=== PATIENT | male | born 1970 | race Caucasian/White ===

== ENCOUNTER 2017-01-12 12:39 | Day surgery (SDC) | payer BC ==
[~2017-01-12 12:39] MED LIST: Buffered Lidocaine 0.9% SYRIN* 5 ML/SYR SYRINGE INTRADERM ONE; NS 0.9% 1000 ML* 1,000 ML IV SCH
[2017-01-12] MEDS ORDERED: Buffered Lidocaine 0.9% SYRIN* 5 ML/SYR SYRINGE ONE (12:42)
[2017-01-12] MEDS ORDERED: ceFAZolin 2 GM PREMIX (*) 50 ML IVPB ONE (12:42)
[2017-01-12] MEDS ORDERED: fentaNYL* 50 MCG/ML 2 ML VIAL (100 MCG VIAL) ONE ×2 (13:48→15:48)
[2017-01-12] MEDS ORDERED: Midazolam* 1 MG/ML 2 ML VIAL (2 MG) ONE (13:48)
[2017-01-12] MEDS ORDERED: Lidocaine 1% INJ* 10 MG/ML 30 ML SDV ONE (14:26)
[2017-01-12] MEDS ORDERED: Bupivacaine 0.5% SDV PF* 30 ML VIAL ONE (14:26)
[2017-01-12] MEDS ORDERED: Bupivacaine 0.25% SDV* 30 ML ONE (14:26)
[2017-01-12] MEDS ORDERED: Propofol* 10 MG/ML 20 ML BTL IV PUSH ONE (14:40)
[2017-01-12] MEDS ORDERED: Lidocaine 2% PF * 5 ML VIAL ONE (14:40)
[2017-01-12] MEDS ORDERED: Famotidine IV* 10 MG/ML 2 ML (20 mg) ONE (14:40)
[2017-01-12] MEDS ORDERED: Midazolam* 1 MG/ML 5 ML VIAL (5 MG) ONE (14:40)
[2017-01-12] MEDS ORDERED: Dexamethasone IV* 4 MG/ML 1 ML (4 MG) ONE (14:40)
[2017-01-12] MEDS ORDERED: KETAMINE HCL* 50 MG/ML 10 ML VIAL ONE (14:50)
[2017-01-12] MEDS ORDERED: Acetaminophen TAB* 325 MG PO PRN (16:56)
[2017-01-12] MEDS ORDERED: HYDROcodone/ACETAMIN 5-325 MG* 1 TAB PO PRN (16:56)
[2017-01-12] MEDS ORDERED: Ondansetron INJ* 2 MG/ML VIAL IV PRN (16:56)
[2017-01-12] MEDS ORDERED: HYDROcodone/ACETAMIN 5-325 MG* 1 TAB ONE (17:14)
[2017-01-12 17:40] VITALS: BP 148/100
--- NOTE | 2017-01-12 19:33 | RAD ---
INDICATION: Percutaneous placement of dorsal column stimulator. COMPARISON: There are no prior studies available for comparison. TECHNIQUE: 834.4 seconds of intermittent fluoroscopic guidance were provided and 5 spot films centered over the thoracolumbar junction region were obtained in the AP and lateral projections. FINDINGS: The films demonstrate placement of 2 dorsal column stimulator leads which project over the lower dorsal spine. IMPRESSION: INTRAOPERATIVE CONTROL FILMS. CPT II Codes: 6045F
--- NOTE | 2017-01-13 12:17 | PM ---
PAIN MANAGEMENT NOTE: DATE OF VISIT: 01/12/17 HISTORY: I had the pleasure of seeing Mr. Rodrigo Lewis today for spinal cord stimulator trial. The patient was seen and examined in the preoperative holding area. His H and P was updated and had no significant changes. SPINAL CORD STIMULATION TRIAL: DATE OF PROCEDURE: 01/12/17 PROCEDURE PERFORMED: Spinal cord stimulator placement. PROCEDURE DIAGNOSIS: Left lower extremity chronic regional pain syndrome. PROCEDURE PERFORMED BY: Nadia Sims MD. FLUORO TIME: ____seconds. SEDATION: General MAC. ESTIMATED BLOOD LOSS: Minimal. HARDWARE: Nevro. PHYSICAL EXAMINATION: The patient denies any new neurological or constitutional red flags. The patient denies any recent infection or current use of anticoagulants. Medications, as outlined on electronic medical record as well as allergies were reviewed with the patient. Skin of back with rash, lesions, or ulcers. PROCEDURE SUMMARY: The patient was seen and examined. Medical records were reviewed. The patient was informed of the risks, benefits, and alternatives to the procedure. Risks discussed included but were not limited to bleeding, infection, nerve damage or spinal headaches. The patient indicates understanding , all questions were answered, and consent obtained. The patient was then brought to the procedure room and placed in the prone position with arms to the side, making sure no pressure points were left unattended. Pressure points were checked and padded. Proceduralist was in continuous attendance. The area was then prepped and draped in the usual sterile manner, strict sterile technique was used. Final verification ("time out ") was performed to ensure the correct patient identity, site and agreement on the procedure to be done. The T12-L1 space was identified and confirmed with fluoroscopy. A left paramedian approach was used. mL of plain lidocaine 1% were used for local anesthesia of the skin. A 14-Gauge 3.5 inch Epidural Touhy needle was inserted through the skin at the level one vertebral body below the aforementioned targeted interspace. The needle was advanced under fluoroscopy in a low transverse approach. The epidural space was identified and confirmed by fluoroscopy and easy thread of the SCS lead was performed. There was minimal change of resistance felt with the LINDSAY syringe when trying to identify the epidural space, so the lead was used to confirm entry into the epidural space. The SCS single lead was easily threaded all the way up to superior endplate of the vertebral body and tested by our technical service representative. The steering and maneuvering of the lead was relatively easy and uneventful without significant issue and care was taken to keep the lead just left of midline with the tip aiming slightly to the left. The initial placement of the lead provided stimulation coverage that was adequate for the patient's pain. We then directed our attention to the right sided lead using the same method as summarized above. At this point, the Tuohy needles were cautiously removed verifying under fluoroscopy there was no migration of the lead. The leads were secured with Steri-Strips and Tegaderm in a sterile fashion. The device was taped and secured to the patient's . The patient tolerated the procedure well and was taken to our post-procedure care unit for further recovery and assessment of stimulation coverage modifications were made by the technical service representative. The patient will return for follow up and lead pull in one week. Orders for thoracic spine 2- view x-rays have been ordered for today. Two leads were placed. The right lead was started [id number] contacts below the T12-L1 interspace and passed easily into the epidural space to rest at the junction of T8-9. The second lead was placed left of midline and advanced to the junction of T7-8. The patient tolerated the procedure well with no focal neurological deficits or paresthesias and was subsequently returned to the PACU area where he recovered from anesthesia and was then subsequently discharged. [id number]/[facility] #: [id number] [place]
== END 2017-01-12 17:54 | disposition home or self-care (01) ==
LOC: OR 12:39
PROVIDERS: ATTEND Anesthesiology Pain Medicine
DX: G90.523 Complex regional pain syndrome I of lower limb, bilateral (principal); F17.210 Nicotine dependence, cigarettes, uncomplicated
CPT/HCPCS: 76001; 77003; C1897; J0690; J1100; J2001; J2250; J2704; J3010

== ENCOUNTER 2017-03-02 10:41 | Day surgery (SDC) | payer BC ==
[~2017-03-02 10:41] MED LIST changes: +Dexamethasone IV* 4 MG/ML 1 ML (4 MG) IV SLOW PU ONE; +Famotidine IV* 10 MG/ML 2 ML (20 mg) IV ONE; -NS 0.9% 1000 ML* 1,000 ML IV SCH
[2017-03-02] MEDS ORDERED: Vancomycin(*) 1,000 MG VIAL ONE (10:57)
[2017-03-02] MEDS ORDERED: Gentamicin ADULT (*) 40 MG/ML VIAL ONE (10:57)
[2017-03-02] MEDS ORDERED: Bupivacaine 0.25% SDV* 30 ML ONE (10:57)
[2017-03-02] MEDS ORDERED: Lidocaine 1% INJ* 10 MG/ML 30 ML SDV ONE (10:57)
[2017-03-02] MEDS ORDERED: Bacitracin IV* 50,000 UNITS INJ ONE (10:58)
[2017-03-02] MEDS ORDERED: ceFAZolin 1 GM VIAL(*) ONE (10:58)
[2017-03-02] MEDS ORDERED: Famotidine IV* 10 MG/ML 2 ML (20 mg) ONE (11:09)
[2017-03-02] MEDS ORDERED: Dexamethasone IV* 4 MG/ML 1 ML (4 MG) ONE (11:09)
[2017-03-02] MEDS ORDERED: ceFAZolin 2 GM PREMIX (*) 2 GM/50 ML BAG IVPB ONE (11:10)
[2017-03-02] MEDS ORDERED: Buffered Lidocaine 0.9% SYRIN* 5 ML/SYR SYRINGE ONE (11:10)
[2017-03-02] MEDS ORDERED: KETAMINE HCL* 50 MG/ML 10 ML VIAL ONE (11:51)
[2017-03-02] MEDS ORDERED: fentaNYL* 50 MCG/ML 2 ML VIAL (100 MCG VIAL) ONE ×3 (11:51→14:44)
[2017-03-02] MEDS ORDERED: Propofol* 10 MG/ML 20 ML BTL IV PUSH ONE ×3 (11:51→14:34)
[2017-03-02] MEDS ORDERED: Midazolam* 1 MG/ML 5 ML VIAL (5 MG) ONE (11:51)
[2017-03-02] MEDS ORDERED: Lidocaine 2% PF * 5 ML VIAL ONE (11:51)
[2017-03-02] MEDS ORDERED: Morphine INJ* 2 MG/ML 1 ML CARPUJECT IV PRN (11:56)
[2017-03-02] MEDS ORDERED: oxyCODONE/Acetamin 5/325 MG* TAB PO PRN (11:56)
[2017-03-02] MEDS ORDERED: HYDROcodone/ACETAMIN 5-325 MG* 1 TAB PO PRN (11:56)
[2017-03-02] MEDS ORDERED: fentaNYL* 50 MCG/ML 2 ML VIAL (100 MCG VIAL) IV PRN (11:56)
[2017-03-02] MEDS ORDERED: PROCHLORPERAZINE INJ 5 MG/ML 2 ML VIAL IV PRN (11:56)
[2017-03-02] MEDS ORDERED: Ondansetron INJ* 2 MG/ML VIAL ONE (14:45)
--- NOTE | 2017-03-02 14:47 | RAD ---
INDICATION: Placement of dorsal column stimulator. TECHNIQUE: 737.7 seconds of intermitted fluoroscopic guidance was provided. Several spot films of the spine centered centered just above the dorsal lumbar junction were obtained. FINDINGS: The films demonstrate placement of 2 dorsal column stimulator leads which project over the lower dorsal spinal canal. IMPRESSION: PAIN CLINIC CONTROL FILMS. CPT II Codes: 6045F
[2017-03-02 16:01] VITALS: BP 121/81
--- NOTE | 2017-03-06 04:14 | OP ---
DATE OF OPERATION: 03/02/17 [facility] DATE OF : 66. SURGEON: Nadia Sims MD. TICKET WORKER: Juni Whelan MD. ANESTHESIOLOGIST: Dr. Hammond. ANESTHESIA: Local MAC. PRE-OP DIAGNOSIS: Left-sided chronic regional pain syndrome of the lower extremity. POST-OP DIAGNOSIS: Left-sided chronic regional pain syndrome of the lower extremity. OPERATIVE PROCEDURE: Permanent spinal cord stimulant lead and IPG implantation. ESTIMATED BLOOD LOSS: Less than 20 mL. HARDWARE: Nevro. SUMMARY: The patient is a very pleasant 46-year-old man who complains of left- sided ankle CRPS. He has failed extensive conservative management and underwent spinal cord stimulator trial over the last month. The patent had significant relief of his pain and elected to proceed with permanent implantation. He is here today to undergo this procedure. The risk and benefits of the procedure were extensively discussed, both in the office as well as preoperatively today. The risks and alternative to therapy including possibilities of post dural puncture headache, bleeding, infection, failure of device to improve pain, nerve injury were all discussed with the patient. He verbalized understanding of the risks and elected to proceed. Informed consent was obtained. DESCRIPTION OF PROCEDURE: The patient was then brought to the operating suite by Anesthesia and placed prone on the operating room table. His back was prepped and draped in the usual sterile fashion. Using the fluoroscopy, the T12 -L1 interspace was identified and subcutaneous tissues over that area was anesthetized with a total of 10 mL of 1% lidocaine mixed 0.25% Marcaine. Subsequently, using a #10 scalpel, incision was made over the skin with subsequent blunt dissection down to the subcutaneous and deeper tissues using Bovie electrocautery. Then using a 14-gauge Tuohy needle under direct fluoroscopic guidance at the T12-L1 interspace, I identified the epidural space using a loss of resistance to air technique. There was no neuraxial heme or paresthesias or CSF noted. There was negative aspiration. The contact linear lead was then passed easily into the epidural space and guided to cover over the T8 vertebral body on the left side of midline. Subsequently, another 14 gauge epidural Tuohy needle was used and guided into the T12-L1 interspace. Subsequently, again loss of resistance to air technique was used. There was no CSF, blood or paresthesias noted. There was negative aspiration. Another contact linear lead was passed into the epidural space and laid parallel and slightly to the right of the former lead covering the T8-T9 intervertebral space. Fluoroscopic view was checked in the lateral position and showed good posterior placement of the leads in the epidural space. The leads were placed over the exact anatomical positions of his lead placement during trial. Subsequently, the stylet and needles were removed and the 2 leads were anchored using the Nevro anchoring system. The anchors were then sutured in with 0 silk to the deeper scar tissues. The anchors were then tightened using the silk sutures around the lead. The IPG pocket template was then used to mai the left flank. A 1% lidocaine and 0.25% Marcaine was subsequently used to anesthetize the skin and subcutaneous tissues. Making a transverse incision, a subcutaneous pocket using Metzenbaum scissors, electrocautery for hemostasis was created about the size of the IPG. The area was irrigated copiously with antibiotic irrigation. Subsequently, a tunneling device was used to tunnel from the midline incision to the pocket. The IPG was then attached and continuity was confirmed. Hemostasis was then achieved again in both incisions. Both incisions were subsequently then irrigated again copiously with antibiotic irrigant and vancomycin power was placed. The leads were then placed into the IPG and an audible click was head upon locking down of the screws in both the superior and inferior pockets. The generator was then placed into the pocket. Approximately, a total of 200 mg of vancomycin powder was placed into the pocket and midline incisions. The incisions were then closed with interrupted 2-0 and 3-0 Polysorb sutures. The incisions were then closed with interrupted 2-0 Polysorb sutures followed by another layer of 3-0 Polysorb sutures. The skin was closed using a running subcuticular 4-0 Polysorb suture. DermaFlex was then placed over the incisions followed by Steri -strips and sterile dressings were applied. The patient was then brought to the recovery room by Anesthesia and was subsequently discharged upon meeting the discharge criteria. He tolerated the procedure well. He demonstrated no obvious focal neurological deficits or paresthesias upon discharge. He was given Percocet 5/325, dispensed 20 for postoperative procedural pain. He will follow up with me on the 03/14/17 and will call the office with any questions or concerns. [id number]/[facility] #: [id number] [place]
== END 2017-03-02 16:09 | disposition home or self-care (01) ==
LOC: OR 10:41
PROVIDERS: ATTEND Anesthesiology Pain Medicine
DX: G90.522 Complex regional pain syndrome I of left lower limb (principal); G57.92 Unspecified mononeuropathy of left lower limb; F17.210 Nicotine dependence, cigarettes, uncomplicated; Z79.899 Other long term (current) drug therapy
CPT/HCPCS: 36415; 77003; 86703; 86803; A9270-GY; C1820; C1897; J0690; J1100; J1580; J2250; J2405; J2704; J3010; J3370

== ENCOUNTER → 2017-11-01 10:47 | Day surgery (SDC) | payer BC ==
[~2017-11-01 10:47] MED LIST changes: +Acetaminophen TAB* 325 MG ONE; +Acetaminophen TAB* 325 MG PO PRN; +Bacitracin IV* 50,000 UNITS INJ ONE; +Bupivacaine 0.25% SDV PF* 10 ML VIAL INJ ONE; -Dexamethasone IV* 4 MG/ML 1 ML (4 MG) IV SLOW PU ONE; -Famotidine IV* 10 MG/ML 2 ML (20 mg) IV ONE; +Gentamicin ADULT (*) 40 MG/ML VIAL ONE; +KETAMINE HCL* 50 MG/ML 10 ML VIAL ONE; +Lidocaine 1% INJ* 10 MG/ML 30 ML SDV ONE; +Midazolam* 1 MG/ML 5 ML VIAL (5 MG) ONE; +Naloxone* 0.4 MG/ML 1 ML VIAL IV PRN; +Ondansetron INJ* 2 MG/ML VIAL IV PRN; +Propofol* 10 MG/ML 20 ML BTL IV PUSH ONE; +Propofol* 500 MG/50 ML BTL ONE; +Vancomycin(*) 1,000 MG VIAL ONE; +ceFAZolin 1 GM VIAL(*) ONE; +ceFAZolin 2 GM PREMIX (*) 2 GM/50 ML BAG IVPB ONE; +fentaNYL* 50 MCG/ML 2 ML VIAL (100 MCG VIAL) IV PRN; +fentaNYL* 50 MCG/ML 2 ML VIAL (100 MCG VIAL) ONE
[2017-11-01 15:25] VITALS: BP 153/92
--- NOTE | 2017-11-01 15:41 | RAD ---
CPT II Codes: G9500 INDICATION: Neurostimulator removal. Fluoroscopic services provided for referring physician. 1.9 seconds of fluoroscopy time was used. Single spot image demonstrates neurostimulator leads still in place. IMPRESSION: Fluoroscopic services provided for referring physician for neural stimulator removal.
--- NOTE | 2017-11-01 16:16 | PM ---
DATE OF SERVICE: 11/01/2017 - [facility] DATE OF : 66 PHYSICIAN: Dr. Nadia Sims. CHILD NUTRITION DIRECTOR: Dr. Juni Whelan. ANESTHESIA: Local MAC. PREOPERATIVE DIAGNOSIS: Left lower extremity chronic regional pain syndrome. POSTOPERATIVE DIAGNOSIS: Left lower extremity chronic regional pain syndrome. PROCEDURE PERFORMED: Change of implanted spinal neurostimulator pulse generator cabin worker. HARDWARE: Nevro. ESTIMATED BLOOD LOSS: Minimal. PROCEDURE: The patient was seen and examined in the preoperative holding area. The risks and benefits of the procedure, including but not limited to bleeding, bruising, infection, nerve injury, and device failure were discussed with the patient who verbalized understanding and elected to proceed. The patient denied any constitutional red flags such as fever, chills, infection, use of antibiotics, or changes in his pain symptoms. The patient continues to express pain at the site of the generator due to the size of the generator and is looking forward to having it changed. His left low back was marked appropriately and the patient was brought to the operating room by anesthesia. The patient was placed prone on the operating room table and his abdomen was padded with pillows as to level out is lumbar lordosis. His back was then prepped and draped in the usual sterile fashion. A time out was performed. Subsequently, a 10-blade was used to make a skin incision. Subsequently, soft tissue dissection was made using a combination of Metzenbaum scissors and blunt dissection until the pocket was reached. The pocket appeared healthy and within normal limits with a good capsule. The battery was removed and disconnected from the leads. Subsequently, the generator pocket was irrigated with antibiotic solution copiously. Hemostasis was achieved using bipolar cautery. A new battery was connected to the leads and inserted into the pocket. It was then tested by our [employer] personal financial representative and found to have good connections. The battery screws were tightened and subsequently the wound was closed using 3-0 Vicryl sutures for fascia using interrupted stitches and 4-0 Vicryl for subcuticular closure. The skin was then closed with Dermabond and dressed with Steri-strips. The wound was then sterilely dressed with 4 x 4's and a Tegaderm. The patient was brought to the recovery room in stable condition and subsequently recovered and then discharged upon meeting anesthesia discharge criteria. I did discuss the procedure with his who was present in the recovery room and advised him to contact our clinic should he require any pain medications. An x-ray of his leads showed no motion of lead placement intraoperatively. The patient tolerated the procedure well and was subsequently discharged. He will follow-up with me in the office as scheduled for removal of his sutures. [id number]/[facility] #: [id number] [place]
== END | disposition home or self-care (01) ==
LOC: OR 10:47
PROVIDERS: ATTEND Anesthesiology Pain Medicine
DX: G90.522 Complex regional pain syndrome I of left lower limb (principal); Y83.1 Surgical operation with implant of artificial internal device as the cause of abnormal reaction of the patient, or of later complication, without mention of misadventure at the time of the procedure
CPT/HCPCS: 76000; A9270-GY; C1820; J0690; J1580; J2250; J2704; J3010; J3370; J3490